=== PATIENT | male | born 1970 | race Hispanic/Latino ===

== ENCOUNTER 2022-02-18 16:25 | Emergency (ER) | payer OTHER ==
[2022-02-18] MEDS ORDERED: Acetaminophen 500 MG TAB ONE (17:02)
== END 2022-02-18 18:16 ==
LOC: EEVIPCON 16:25 → CSHERS 16:25
DX: S09.90XA Unspecified injury of head, initial encounter (principal); S16.1XXA Strain of muscle, fascia and tendon at neck level, initial encounter; W01.198A Fall on same level from slipping, tripping and stumbling with subsequent striking against other object, initial encounter; Y93.E5 Activity, floor mopping and cleaning
CPT/HCPCS: 70450; 72125